=== PATIENT | female | born 1940 | race Caucasian/White ===

== ENCOUNTER 2018-10-12 22:14 | Observation (INO) ==
[2018-10-12] MEDS ORDERED: Sod Chloride 0.9% Inj 1,000 ML IV.SIG ONE (22:43)
--- NOTE | 2018-10-12 22:58 | XR ---
EXAM DATE: 10/12/2018 10:55 PM EST AGE/SEX: 78 years / Female INDICATIONS: Syncope. CLINICAL DATA: This is the patient's initial encounter. Patient reports that signs and symptoms have been present for 1 day and indicates a pain score of 0/10. MEDICAL/SURGICAL HISTORY: Hypertension. CABG. Pacemaker. COMPARISON: No prior exams available for comparison. FINDINGS: A single AP view of the chest demonstrates the lungs to be symmetrically aerated without evidence of mass, infiltrate or effusion. The cardiomediastinal contours are unremarkable. Osseous structures a re intact. Left subclavian pacer in good position. 4 median sternotomy wires. CONCLUSION: Left subclavian pacer. Clips and wires suggests CABG. Electronically signed by: Art Barr MD Board Certified Radiologist 10/12/2018 10:57 PM EST
--- NOTE | 2018-10-12 23:05 | CT ---
EXAM DATE: 10/12/2018 10:58 PM EST AGE/SEX: 78 years / Female INDICATIONS: Trauma; fall. Possible syncope. CLINICAL DATA: This is the patient's initial encounter. Patient reports that signs and symptoms have been present for 1 day and indicates a pain score of 6/10. MEDICAL/SURGICAL HISTORY: None. None. RADIATION DOSE: 56.35 CTDI (mGy) COMPARISON: No prior exams available for comparison. TECHNIQUE: CT of the head without contrast. Using automated exposure control and adjustment of the mA and/or kV according to patient size, radiation dose was kept as low as reasonably achievable to ob tain optimal diagnostic quality images. DICOM format image data is available electronically for revi ew and comparison. FINDINGS: Cerebrum: The ventricles are normal for age. No evidence of midline shift, mass lesion, hemorrhage or acute infarction. No extraaxial fluid collections are seen. Posterior Fossa: The cerebellum and brainstem are intact. The 4th ventricle is midline. The cerebe llopontine angle is unremarkable. Extracranial: The visualized portion of the orbits is intact. There are some calcifications right la teral globe. Skull: The calvaria is intact. No evidence of skull fracture. CONCLUSION: 1. No evidence of intracranial injury, hemorrhage, edema or mass effect. . Electronically signed by: Art Barr MD Board Certified Radiologist 10/12/2018 11:04 PM EST
[2018-10-12 23:29] LABS: Baso # (Auto) 0.1 th/mm3 (0.0-0.2); Baso % (Auto) 0.5 % (0.0-2.0); Eos # (Auto) 0.2 th/mm3 (0.0-0.4); Hematocrit 38.9 % (35.0-46.0); Hemoglobin 12.9 gm/dL (11.6-15.3); Lymph # (Auto) 1.3 th/mm3 (1.0-4.8); Lymph % (Auto) 11.2 % (9.0-44.0); Mean Corpuscular HGB Conc 33.3 % (32.0-36.0); Mean Corpuscular Hemoglobin 30.7 pg (27.0-34.0); Mean Corpuscular Volume 92.1 fL (80.0-100.0); Mean Platelet Volume 10.1 fL (7.0-11.0); Mono # (Auto) 0.9 th/mm3 (0.0-0.9); Mono % (Auto) 7.9 % (0.0-8.0); Neut # (Auto) 9.2 th/mm3 (1.8-7.7); Neut % (Auto) 78.4 % (16.0-70.0); Platelet Count 208 th/mm3 (150-450); Red Blood Count 4.22 mil/mm3 (4.00-5.30); Red Cell Distribution Width 14.4 % (11.6-17.2); White Blood Count 11.7 th/mm3 (4.0-11.0)
--- NOTE | 2018-10-12 23:31 | ED ---
HPI General Chief Complaint: Dizziness Stated Complaint: Poss Syncope Time Seen by Provider: 10/12/18 22:24 Source: EMS Mode of arrival: EMS History of Present Illness HPI narrative: 78 yo F bibems 2/2 slumping over during a bowel movement this evening. No fall. Pt recalls event. Pt denies cp/sob. No n/v/d. No dizziness. Pt reports feeling well today otherwise. Onset sudden. Timing resolved. Daughter called EMS. Related Data Home Medications Medication Instructions Recorded Confirmed Aspir-81 81 mg PO DAILY 10/12/18 10/12/18 alprazolam 0.25 mg PO BID 10/13/18 10/13/18 atorvastatin 20 mg PO DAILY 10/13/18 10/13/18 docusate sodium 100 mg PO DAILY PRN 10/13/18 10/13/18 midodrine 2.5 mg PO DAILY 10/13/18 10/13/18 montelukast 10 mg PO QPM 10/13/18 10/13/18 pregabalin [Lyrica] 75 mg PO BID 10/13/18 10/13/18 sertraline 50 mg PO DAILY 10/13/18 10/13/18 Allergies Allergy/AdvReac Type Severity Reaction Status Date / Time Penicillins Allergy Anaphylaxis Verified 10/12/18 22:30 Sulfa (Sulfonamide Allergy Anaphylaxis Verified 10/12/18 22:30 Antibiotics) Review of Systems ROS: all other systems reviewed are negative [facility] Medical History Medical History Atrial fibrillation (Acute) HTN (hypertension) (Acute) Pacemaker (Acute) Surgical History Surgical History History of hernia surgery (Acute) Social History Social History Substance History: No History of Abuse Second Hand Smoke Exposure: No Smoking Status: Never smoker How Often Do You Have a Drink Containing Alcohol: Never Recent Travel in [facility] [[email or web address]] within the Last 8 Weeks: No Recent Out of Country Travel within the Last 8 Weeks: No Exam Narrative Exam Narrative: GENERAL: 78 yo F, WNWD, AOx3 SKIN: Focused skin assessment warm/dry. HEAD: Atraumatic. Normocephalic. EYES: Pupils equal and round. No scleral icterus. No injection or drainage. ENT: No nasal bleeding or discharge. Mucous membranes pink and moist. NECK: Trachea midline. No JVD. CARDIOVASCULAR: Regular rate and rhythm. No murmur appreciated. RESPIRATORY: No accessory muscle use. Clear to auscultation. Breath sounds equal bilaterally. GASTROINTESTINAL: Abdomen soft, non-tender, nondistended. Hepatic and splenic margins not palpable. MUSCULOSKELETAL: No obvious deformities. No clubbing. No cyanosis. No edema. NEUROLOGICAL: Awake and alert. No obvious cranial nerve deficits. Motor grossly within normal limits. Normal speech. PSYCHIATRIC: Appropriate mood and affect; insight and judgment normal. Course Initial Documented Vital Signs Temperature 98.7 F 10/12/18 22:21 Pulse Rate 60 10/12/18 22:21 Respiratory Rate 18 10/12/18 22:21 Blood Pressure 115/57 L 10/12/18 22:21 Pulse Oximetry 94 L 10/12/18 22:21 Last Documented Vital Signs Temperature 98.7 F 10/12/18 22:21 Pulse Rate 60 10/12/18 22:21 Respiratory Rate 18 10/12/18 22:21 Blood Pressure 115/57 L 10/12/18 22:21 Pulse Oximetry 94 L 10/12/18 22:21 Medical Decision Making MDM Narrative Medical decision making narrative: Chest x-ray shows no acute cardiopulmonary disease Head CT shows no acute ICH EKG shows an electronic atrial paced maker with a rate of 60 T wave inversions are noted in V1 through V6. No prior available for comparison Discussion with daughter reveals pt had blood pressure of 80/50 and 90/60 en route to ED. WBC 11.7 Na 148 BUN 30 Cr 0.[address] Arellano Neurologist Dr Parham Near syncope with clinical dehydration Call to [facility] at 0100 d/w Dr Elam at 120AM Pt resting comfortably throughout ED stay. Medical Screen Exam Complete: Yes Emergency Medical Condition: Yes Lab Data Result diagrams: 10/12/18 23:11 10/12/18 23:11 Lab Results 10/12/18 10/12/18 Range/Units 23:11 23:11 WBC 11.7 H (4.0-11.0) th/mm3 RBC 4.22 (4.00-5.30) mil/mm3 Hgb 12.9 (11.6-15.3) gm/dL Hct 38.9 (35.0-46.0) % MCV 92.1 (80.0-100.0) fL MCH 30.7 (27.0-34.0) pg MCHC 33.3 (32.0-36.0) % RDW 14.4 (11.6-17.2) % Plt Count 208 (150-450) th/mm3 MPV 10.1 (7.0-11.0) fL Neut % (Auto) 78.4 H (16.0-70.0) % Lymph % (Auto) 11.2 (9.0-44.0) % Pender % (Auto) 7.9 (0.0-8.0) % Eos % (Auto) 2.0 (0.0-4.0) % Baso % (Auto) 0.5 (0.0-2.0) % Neut # (Auto) 9.2 H (1.8-7.7) th/mm3 Lymph # (Auto) 1.3 (1.0-4.8) th/mm3 Pender # (Auto) 0.9 (0.0-0.9) th/mm3 Eos # (Auto) 0.2 (0.0-0.4) th/mm3 Baso # (Auto) 0.1 (0.0-0.2) th/mm3 WBC Differential . Differential Comment Auto diff final Sodium 148 H (136-145) meq/L Potassium 3.9 (3.5-5.1) meq/L Chloride 118 H (98-107) meq/L Carbon Dioxide 21.2 (21.0-32.0) meq/L Anion Gap 9 (5-15) meq/L BUN 30 H (7-18) mg/dL Creatinine 0.98 (0.50-1.00) mg/dL Estimated GFR 55 L (>89) mL/min Random Glucose 80 (74-106) mg/dL Calcium 8.0 L (8.5-10.1) mg/dL Imaging Data Radiologist's impression: Chest X-Ray 10/12/18 22:43 CONCLUSION: Left subclavian pacer. Clips and wires suggests CABG. Head CT 10/12/18 22:43 CONCLUSION: 1. No evidence of intracranial injury, hemorrhage, edema or mass effect. . Discharge Plan Discharge Disposition Patient Disposition: ED Admit(ED Internal Use Only) Discharge Condition Condition: Stable Discharge Order Discharge Orders: ED Use Only Admit Order (Routine); Ordered 10/13/18 Ordered By: Humberto Schmitz Physicians Team ED Provider: Humberto Schmitz Primary Care Provider: Jass Wilcox Attending Provider: Lois lEam Status ED Status: Admitted Observation Patient
[2018-10-12 23:47] LABS: Carbon Dioxide 21.2 meq/L (21.0-32.0); Potassium 3.9 meq/L (3.5-5.1)
[2018-10-13] MEDS ORDERED: Acetaminophen 325 MG Tablet PO PRN (01:43)
[2018-10-13] MEDS ORDERED: Bisacodyl 10 MG Supp RECTAL PRN (01:43)
--- NOTE | 2018-10-13 03:11 | P.HP ---
History of Present Illness Service: [facility] Primary Care Physician: CRISTI Meléndez History of Present Illness: 78-year-old female with a past medical history significant for pacemaker for an irregular heartbeat, dementia, blindness and hyperlipidemia presents to the emergency department for the evaluation of a syncopal episode. The patient was discharged from rehab on 09/25/18 after a 2-week hospitalization for pneumonia. The patient has no memory of the events that occurred earlier in the evening. Per the patient's daughter, she was called by her stanley son who was taking care of the patient. The patient reported to the son that she was feeling lightheaded and went to the bathroom. While in the bathroom she lost consciousness and the son helped her to the floor. She lost bowel continence at that time. The patient denies any chest pain or shortness of breath. No palpitations. No abdominal pain. No nausea/vomiting/diarrhea. No focal neurologic deficits. Review of Systems All other systems reviewed negative except as stated in HPI [facility] - History History Provided By: Patient - Medical History Medical History: Medical History (Last Updated 10/13/18 @ 03:04 by Lois Elam MD) Anxiety Atrial fibrillation HTN (hypertension) Hyperlipidemia Pacemaker Syncopal episodes - Surgical History Surgical History: Surgical History (Last Updated 10/13/18 @ 03:04 by Lois Elam MD) History of cataract surgery History of hand surgery History of hernia surgery History of shoulder surgery Hx of appendectomy Hx of cataract surgery - Family History Family History: Family History (Last Updated 10/13/18 @ 03:05 by Lois Elam MD) Other CAD (coronary artery disease) CVA (cerebral vascular accident) - Social History I have reviewed the patient's Social History: Yes - Tobacco History Second Hand Smoke Exposure: No Tobacco Use In Past 30 Days: No Smoking Status: Never smoker - Alcohol History How Often Do You Have a Drink Containing Alcohol: Never - Substance Use History Substance History: No History of Abuse - Travel History Recent Travel in the [place] Within the Last 8 Weeks: No Recent Travel Out of the Country Within the Last 8 Weeks: No - Immunization History Tetanus Immunization: <5 Years Medications and Allergies Active Medications: Active Medications Acetaminophen (Tylenol) 650 mg PO Q4H PRN PRN Reason: Temp > 100.4 Al Hydroxide/Mg Hydroxide (Milk Of Magnesia Liq) 30 ml PO Q12H PRN PRN Reason: Mild Constipation Alprazolam (Xanax) 0.25 mg PO BID [facility] Aspirin (Ecotrin) 81 mg PO DAILY [facility] Atorvastatin Calcium (Lipitor) 20 mg PO DAILY [facility] Bisacodyl (Dulcolax Supp) 10 mg RECTAL DAILY PRN PRN Reason: SEVERE CONSITIPATION Heparin Sodium (Porcine) (Heparin Inj) 5,000 units SQ Q12HR SERGEI Lactulose (Lactulose Liq) 30 ml PO DAILY PRN PRN Reason: SEVERE CONSITIPATION Midodrine (Proamatine) 2.5 mg PO DAILY [facility] Ondansetron HCl (Zofran Inj) 4 mg IV.PUSH Q6H PRN PRN Reason: NAUSEA OR VOMITING Pregabalin (Lyrica) 75 mg PO BID [facility] Senna/Docusate Sodium (Adriana-Colace) 1 tab PO BID [facility] Sennosides (Senokot) 17.2 mg PO Q12H PRN PRN Reason: Moderate Constipation Sertraline HCl (Zoloft) 50 mg PO DAILY [facility] Sodium Chloride (Ns Flush) 2 ml IV.FLUSH PRN PRN PRN Reason: FLUSH AFTER USING IV ACCESS Sodium Chloride (Ns Flush) 2 ml IV.FLUSH BID [facility] Sodium Chloride (Ns Flush) 2 ml IV.FLUSH PRN PRN PRN Reason: FLUSH AFTER USING IV ACCESS Allergies Allergy/AdvReac Type Severity Reaction Status Date / Time Penicillins Allergy Anaphylaxis Verified 10/12/18 22:30 Sulfa (Sulfonamide Allergy Anaphylaxis Verified 10/12/18 22:30 Antibiotics) Home Medications Medication Instructions Recorded Confirmed Type Aspir-81 81 mg PO DAILY 10/12/18 10/12/18 History alprazolam 0.25 mg PO BID 10/13/18 10/13/18 History atorvastatin 20 mg PO DAILY 10/13/18 10/13/18 History docusate sodium 100 mg PO DAILY PRN 10/13/18 10/13/18 History midodrine 2.5 mg PO DAILY 10/13/18 10/13/18 History montelukast 10 mg PO QPM 10/13/18 10/13/18 History pregabalin [Lyrica] 75 mg PO BID 10/13/18 10/13/18 History sertraline 50 mg PO DAILY 10/13/18 10/13/18 History Exam Vital signs: Vital Signs 10/12/18 22:21 10/13/18 01:40 Temperature 98.7 F Pulse Rate 60 66 Respiratory Rate 18 Blood Pressure 115/57 L Pulse Oximetry 94 L 96 Intake & Output 10/12/18 10/12/18 10/13/18 06:59 18:59 06:59 Intake Total 1000 / 1000 Balance 1000 / 1000 Weight 68.039 kg Intake: IV 1000 / 1000 NS Inj 1,000 ML @ Wide Open IV. 1000 / 1000 SIG BOLUS ONE Rx#:[id number] Narrative: Gen.: No acute distress Head: Normocephalic. Atraumatic. EENT: Pupils equal round and reactive to light. Nose without drainage. Airway intact. Throat without injection. Cardiovascular: Regular rate and rhythm. No murmurs, rubs or gallops. Respiratory: Lungs clear to auscultation bilaterally. No wheezes or rhonchi. Abdomen: Soft, nontender, nondistended. No peritoneal signs. Musculoskeletal: No gross deformities. No edema. Skin: No obvious rashes or erythema. Neuro: Sensory and motor grossly intact. Cranial nerves II through XII grossly intact. Results - Labs CBC & Chem 7: 10/12/18 23:11 10/12/18 23:11 Labs: Laboratory Results - last 24 hr 10/12/18 10/12/18 23:11 23:11 WBC 11.7 H RBC 4.22 Hgb 12.9 Hct 38.9 MCV 92.1 MCH 30.7 MCHC 33.3 RDW 14.4 Plt Count 208 MPV 10.1 Neut % (Auto) 78.4 H Lymph % (Auto) 11.2 Clinch % (Auto) 7.9 Eos % (Auto) 2.0 Baso % (Auto) 0.5 Neut # (Auto) 9.2 H Lymph # (Auto) 1.3 Clinch # (Auto) 0.9 Eos # (Auto) 0.2 Baso # (Auto) 0.1 WBC Differential . Differential Comment Auto diff final Sodium 148 H Potassium 3.9 Chloride 118 H Carbon Dioxide 21.2 Anion Gap 9 BUN 30 H Creatinine 0.98 Estimated GFR 55 L Random Glucose 80 Calcium 8.0 L - Imaging Impressions Chest X-Ray 10/12/18 22:43 CONCLUSION: Left subclavian pacer. Clips and wires suggests CABG. Head CT 10/12/18 22:43 CONCLUSION: 1. No evidence of intracranial injury, hemorrhage, edema or mass effect. . Caprini VTE Risk Assessment Caprini VTE Risk Assessment: Moderate/High Risk (score >= 2) Caprini Risk Assessment Model: Point Value = 1 Point Value = 2 Point Value = 3 Point Value = 5 Age 41-60 Minor surgery BMI > 25 kg/m2 Swollen legs Varicose veins or History of unexplained or recurrent spontaneous Oral contraceptives or hormone replacement Sepsis (< 1 month) Serious lung disease, including pneumonia (< 1 month) Abnormal pulmonary function Acute myocardial infarction Congestive heart failure (< 1 month) History of inflammatory bowel disease Medical patient at bed rest Age 61-74 Arthroscopic surgery Major open surgery (> 45 min) Laparoscopic surgery (> 45 min) Malignancy Confined to bed (> 72 hours) Immobilizing plaster cast Central venous access Age >= 75 History of VTE Family history of VTE Factor V Leiden Prothrombin [id number] Lupus anticoagulant Anticardiolipin antibodies Elevated serum homocysteine Heparin-induced thrombocytopenia Other congenital or acquired thrombophilia Stroke (< 1 month) Elective arthroplasty Hip, pelvis, or leg fracture Acute spinal cord injury (< 1 month) Prophylaxis Regimen: Total Risk Factor Score Risk Level Prophylaxis Regimen 0-1 Low Early ambulation 2 Moderate Order ONE of the following: *Sequential Compression Device (SCD) *Heparin 5000 units SQ BID 3-4 Higher Order ONE of the following medications: *Heparin 5000 units SQ TID *Enoxaparin/Lovenox 40 mg SQ daily (WT < 150 kg, CrCl > 30 mL/min) *Enoxaparin/Lovenox 30 mg SQ daily (WT < 150 kg, CrCl > 10-29 mL/min) *Enoxaparin/Lovenox 30 mg SQ BID (WT < 150 kg, CrCl > 30 mL/min) AND/OR *Sequential Compression Device (SCD) 5 or more Highest Order ONE of the following medications: *Heparin 5000 units SQ TID (Preferred with Epidurals) *Enoxaparin/Lovenox 40 mg SQ daily (WT < 150 kg, CrCl > 30 mL/min) *Enoxaparin/Lovenox 30 mg SQ daily (WT < 150 kg, CrCl > 10-29 mL/min) *Enoxaparin/Lovenox 30 mg SQ BID (WT < 150 kg, CrCl > 30 mL/min) AND *Sequential Compression Device (SCD) Assessment and Plan - Plan Assessment/plan: 1. Syncope Patient with recent pacemaker placement for "irregular heartbeat" Not on systemic anticoagulation Echo and carotid ultrasound pending Patient's grinding operator, Dr. Arellano consulted, appreciate assistance Telemetry 2. Hyperlipidemia Continue home statin 3. Dementia/depression/anxiety Continue home Zoloft and Xanax FEN Regular diet Electrolytes: Monitor and replete as needed NS at 70 cc/hour
[2018-10-13] MEDS: Sod Chloride 0.9% Inj 1,000 ML IV.CONT SCH ×3 (03:40→17:40)
[2018-10-13] MEDS: Heparin - SQ 10,000 UNITS/ML Vial SQ SCH ×3 (07:37→20:08)
[2018-10-13] MEDS: Pregabalin 75 MG Capsule PO SCH ×3 (07:37→20:08)
[2018-10-13] MEDS: Senna/Docusate Sodium 8.6/50 MG Tablet PO SCH ×3 (07:37→20:09)
[2018-10-13] MEDS: Sertraline 50 MG Tablet PO SCH ×2 (07:37→10:29)
[2018-10-13] MEDS: ALPRAZolam 0.25 MG Tablet PO SCH ×3 (07:37→20:08)
[2018-10-13] MEDS ORDERED: Non-Formulary Drug (Aspir-81 81 MG) PO SCH (09:00)
[2018-10-13] MEDS ORDERED: MIDODRINE 2.5 MG PO SCH (09:00)
--- NOTE | 2018-10-13 10:29 | P.PN ---
Subjective Interval history: Follow-up visit for syncopal episode. Patient seen and examined sitting up on the side of the bed with PT present, later seen ambulating in the navarro with PT and walker. Patient denies any dizziness, lightheadedness, chest pain, cough, shortness of breath, nausea or vomiting. States one episode of diarrhea yesterday with syncopal episode, and no further diarrhea reported. Able to tolerate breakfast without any issues. Patient states that she is just feeling weak. Physical Exam Vital signs: Vital Signs 10/12/18 22:21 10/13/18 01:40 10/13/18 03:10 Temperature 98.7 F 97.1 F L Pulse Rate 60 66 60 Respiratory Rate 18 18 Blood Pressure 115/57 L 118/73 Pulse Oximetry 94 L 96 94 L 10/13/18 03:47 10/13/18 04:00 10/13/18 06:55 Temperature Pulse Rate 70 60 Respiratory Rate 15 Blood Pressure Pulse Oximetry 94 L 10/13/18 08:00 Temperature 96.9 F L Pulse Rate 60 Respiratory Rate 14 Blood Pressure 115/66 Pulse Oximetry 95 Intake & Output 10/12/18 10/13/18 10/13/18 18:59 06:59 18:59 Intake Total 1120 / 1120 Balance 1120 / 1120 Weight 68 kg Intake: IV 1000 / 1000 NS Inj 1,000 ML @ Wide Open IV. 1000 / 1000 SIG BOLUS ONE Rx#:[id number] Oral 120 / 120 Other: # Incontinent Voids 1 Date of Last Bowel Movement 10/13/18 10/13/18 # Incontinent Bowel Movements 1 Narrative: GENERAL: Well-developed, well-nourished female sitting up in bed in no acute distress. SKIN: Warm and dry. HEAD: Atraumatic. Normocephalic. EYES: Pupils equal and round. No scleral icterus. No injection or drainage. ENT: No nasal bleeding or discharge. Mucous membranes pink and moist. NECK: Trachea midline. No JVD. CARDIOVASCULAR: Regular rate and rhythm. No murmurs noted. RESPIRATORY: No accessory muscle use. Clear to auscultation. Breath sounds equal bilaterally. GASTROINTESTINAL: Abdomen soft, non-tender, nondistended. + Bowel sounds MUSCULOSKELETAL: Extremities without clubbing, cyanosis, or edema. No obvious deformities. NEUROLOGICAL: Awake, alert, oriented x3. No obvious cranial nerve deficits. Motor grossly within normal limits. 4/5 muscle strength in the arms and legs. Normal speech. PSYCHIATRIC: Appropriate mood and affect; insight and judgment normal. Results - Labs CBC & Chem 7: 10/12/18 23:11 10/12/18 23:11 Laboratory Results - last 24 hr 10/12/18 10/12/18 23:11 23:11 WBC 11.7 H RBC 4.22 Hgb 12.9 Hct 38.9 MCV 92.1 MCH 30.7 MCHC 33.3 RDW 14.4 Plt Count 208 MPV 10.1 Neut % (Auto) 78.4 H Lymph % (Auto) 11.2 Randolph % (Auto) 7.9 Eos % (Auto) 2.0 Baso % (Auto) 0.5 Neut # (Auto) 9.2 H Lymph # (Auto) 1.3 Randolph # (Auto) 0.9 Eos # (Auto) 0.2 Baso # (Auto) 0.1 WBC Differential . Differential Comment Auto diff final Sodium 148 H Potassium 3.9 Chloride 118 H Carbon Dioxide 21.2 Anion Gap 9 BUN 30 H Creatinine 0.98 Estimated GFR 55 L Random Glucose 80 Calcium 8.0 L - Imaging Impressions Chest X-Ray 10/12/18 22:43 CONCLUSION: Left subclavian pacer. Clips and wires suggests CABG. Head CT 10/12/18 22:43 CONCLUSION: 1. No evidence of intracranial injury, hemorrhage, edema or mass effect. . Assessment and Plan - Plan Syncopal episode -Patient with history of irregular heartbeat not on anticoagulation -Followed by Dr. Adan small, pacemaker in place. -Pacemaker interrogated with no events reported. -Consult placed to cardiology, appreciate assistance per -Carotid ultrasound with mild plaque at carotid bulb regions being greater on right, significant stenosis is not seen. -EKG on admission showed atrial paced rhythm with moderate T wave abnormality. -Head CT negative -Continue monitoring on telemetry, 2D echo pending -Patient is on low-dose Midrin at home, syncopal episode possibly due to dehydration versus vagal episode. Hyperlipidemia Dementia Anxiety -Continue home dose statin -Continue Zoloft and Xanax Patient seen and evaluated by PT who recommended home with home health PT, will also consult OT. DVT prophylaxissubcu heparin Discussed Condition With: Discussed with patient, RN, Gladys, SPORTS INTERN. Discharge Planning: Pending echo likely discharge home with home health PT.
--- NOTE | 2018-10-13 10:58 | US ---
EXAM DATE: 10/13/2018 10:55 AM EST AGE/SEX: 78 years / Female INDICATIONS: Dizziness. Possible syncope. CLINICAL DATA: This is the patient's initial encounter. Patient reports that signs and symptoms have been present for 1 day and indicates a pain score of 0/10. MEDICAL/SURGICAL HISTORY: Hypertension. Atrial fibrillation. Pacemaker. CABG. Appendectomy. Hernia surgery. Cataract surgery. COMPARISON: . VELOCITY PARAMETERS: ICA/CCA Ratio: Right 1.4 , Left 0.8 ICA: Right 121.9 cm/sec, Left 93.5 cm/sec CCA: Right 85.4 cm/sec, Left 114.5 cm/sec ECA: Right 127.8 cm/sec, Left 109.7 cm/sec Vertebral: Right 60.7 cm/sec antegrade, Left 82.2 cm/sec antegrade FINDINGS: Right Carotid: Mild arteriosclerotic plaque is visualized.The waveforms are within normal limits. Left Carotid: Mild arteriosclerotic plaque is visualized. The waveforms are within normal limits. Other: Thyroid nodules are seen. CONCLUSION: Mild plaque at the carotid bulb regions being greater on the right. Significant stenosis is not seen. Electronically signed by: Rl Davenport MD Board Certified Radiologist 10/13/2018 10:57 AM EST
[2018-10-13 11:45] LABS: Bilirubin,Urine Negative (Negative); Clarity,Urine Hazy (Clear); Color,Urine Yellow (Yellw/Straw); Glucose,Urine (UA) Negative (Negative); Leukocyte Esterase,Urine Negative (Negative); Mucus,Urine Few /lpf (Occasional); Nitrite,Urine Negative (Negative); Specific Gravity,Urine 1.021 (1.002-1.035); Squamous Epithelial Cell,Urine 2 /hpf (0-5)
--- NOTE | 2018-10-13 15:04 | P.CONCA ---
History of Present Illness Service: Cardiology Consult date: 10/13/18 Reason for Consult: Syncope Primary Care Provider: CRISTI Meléndez History of Present Illness: Ms. Bruce is a pleasant 78-year-old female known to Dr. Arellano. She has a past medical history significant for symptomatic bradycardia S/P pacemaker implantation, CAD S/P CABG, dementia, blindness and hyperlipidemia. The patient was discharged from rehab on 09/25/18 after a 2-week hospitalization for pneumonia. She presented to the ED yesterday after syncopal episode. Per chart review patient was attempting to go to the restroom and passed out. Grandson called EMS and she was brought to the ED for further evaluation. BP has been stable. CT head was negative. CXR - no acute process. Carotid ultrasound showed mild plaque at the carotid bulb regions being greater on the right. Significant stenosis is not seen. EKG shows A-paced rhythm, T wave inversion, rate 60. Device interrogation was normal, no episodes noted. She denies chest pain, shortness of breath, palpitations. RN reports diarrhea through the night. She is currently sitting on side of bed without distress. Denies pain or needs. Review of Systems 12 point review of systems is negative except what is mentioned above in HPI PMFSH - History History Provided By: Patient - Medical History Medical History: Medical History (Last Reviewed 10/13/18 @ 08:21 by Farzana Tipton) Anxiety Atrial fibrillation HTN (hypertension) Hyperlipidemia Pacemaker Syncopal episodes - Surgical History Surgical History: Surgical History (Last Reviewed 10/13/18 @ 08:21 by Farzana Tipton) History of cataract surgery History of hand surgery History of hernia surgery History of shoulder surgery Hx of appendectomy Hx of cataract surgery - Family History Family History: Family History (Last Updated 10/13/18 @ 03:05 by Lois Elam MD) Other CAD (coronary artery disease) CVA (cerebral vascular accident) - Tobacco History Second Hand Smoke Exposure: No Tobacco Use In Past 30 Days: No Smoking Status: Never smoker - Alcohol History How Often Do You Have a Drink Containing Alcohol: Never - Substance Use History Substance History: No History of Abuse - Travel History Recent Travel in the [place] Within the Last 8 Weeks: No Recent Travel Out of the Country Within the Last 8 Weeks: No - Immunization History Tetanus Immunization: <5 Years Hx Influenza Vaccine This Season: Yes Medications and Allergies Allergies Allergy/AdvReac Type Severity Reaction Status Date / Time codeine Allergy Difficulty Verified 10/13/18 05:17 Breathing Penicillins Allergy Anaphylaxis Verified 10/12/18 22:30 Sulfa (Sulfonamide Allergy Anaphylaxis Verified 10/12/18 22:30 Antibiotics) Home Medications Medication Instructions Recorded Confirmed Type Aspir-81 81 mg PO DAILY 10/12/18 10/12/18 History alprazolam 0.25 mg PO BID 10/13/18 10/13/18 History atorvastatin 20 mg PO DAILY 10/13/18 10/13/18 History docusate sodium 100 mg PO DAILY PRN 10/13/18 10/13/18 History midodrine 2.5 mg PO DAILY 10/13/18 10/13/18 History montelukast 10 mg PO QPM 10/13/18 10/13/18 History pregabalin [Lyrica] 75 mg PO BID 10/13/18 10/13/18 History sertraline 50 mg PO DAILY 10/13/18 10/13/18 History Active Medications: Active Medications Acetaminophen (Tylenol) 650 mg PO Q4H PRN PRN Reason: Temp > 100.4 Al Hydroxide/Mg Hydroxide (Milk Of Magnesia Liq) 30 ml PO Q12H PRN PRN Reason: Mild Constipation Alprazolam (Xanax) 0.25 mg PO BID [facility] Last Admin: 10/13/18 10:29 Dose: Not Given Aspirin (Ecotrin) 81 mg PO DAILY [facility] Last Admin: 10/13/18 10:26 Dose: Not Given Atorvastatin Calcium (Lipitor) 20 mg PO DAILY [facility] Last Admin: 10/13/18 10:26 Dose: Not Given Bisacodyl (Dulcolax Supp) 10 mg RECTAL DAILY PRN PRN Reason: SEVERE CONSITIPATION Heparin Sodium (Porcine) (Heparin Inj) 5,000 units SQ Q12HR [facility] Last Admin: 10/13/18 10:26 Dose: Not Given Sodium Chloride (Ns Inj) 1,000 mls @ 70 mls/hr IV.CONT .[id number] [facility] Last Infusion: 10/13/18 11:30 Dose: 70 mls/hr Lactulose (Lactulose Liq) 30 ml PO DAILY PRN PRN Reason: SEVERE CONSITIPATION Midodrine (Proamatine) 2.5 mg PO DAILY [facility] Last Admin: 10/13/18 10:29 Dose: Not Given Ondansetron HCl (Zofran Inj) 4 mg IV.PUSH Q6H PRN PRN Reason: NAUSEA OR VOMITING Pregabalin (Lyrica) 75 mg PO BID [facility] Last Admin: 10/13/18 10:27 Dose: Not Given Senna/Docusate Sodium (Adriana-Colace) 1 tab PO BID [facility] Last Admin: 10/13/18 10:27 Dose: Not Given Sennosides (Senokot) 17.2 mg PO Q12H PRN PRN Reason: Moderate Constipation Sertraline HCl (Zoloft) 50 mg PO DAILY [facility] Last Admin: 10/13/18 10:29 Dose: Not Given Sodium Chloride (Ns Flush) 2 ml IV.FLUSH PRN PRN PRN Reason: FLUSH AFTER USING IV ACCESS Sodium Chloride (Ns Flush) 2 ml IV.FLUSH BID [facility] Last Admin: 10/13/18 10:27 Dose: Not Given Sodium Chloride (Ns Flush) 2 ml IV.FLUSH PRN PRN PRN Reason: FLUSH AFTER USING IV ACCESS Exam Vital signs: Vital Signs 10/12/18 22:21 10/13/18 01:40 10/13/18 03:10 Temperature 98.7 F 97.1 F L Pulse Rate 60 66 60 Respiratory Rate 18 18 Blood Pressure 115/57 L 118/73 Pulse Oximetry 94 L 96 94 L 10/13/18 03:47 10/13/18 04:00 10/13/18 06:55 Temperature Pulse Rate 70 60 Respiratory Rate 15 Blood Pressure Pulse Oximetry 94 L 10/13/18 08:00 10/13/18 12:00 10/13/18 14:19 Temperature 96.9 F L 96.8 F L Pulse Rate 62 60 62 Respiratory Rate 14 16 Blood Pressure 115/66 122/57 L Pulse Oximetry 95 93 L Intake & Output 10/12/18 10/13/18 10/13/18 18:59 06:59 18:59 Intake Total 1120 / 1120 544 / 544 Balance 1120 / 1120 544 / 544 Weight 68 kg Intake: IV 1000 / 1000 544 / 544 NS Inj 1,000 ML @ 70 mls/hr IV. 544 / 544 CONT .[id number] [facility] Rx#:[id number] NS Inj 1,000 ML @ Wide Open IV. 1000 / 1000 SIG BOLUS ONE Rx#:[id number] Oral 120 / 120 Other: # Incontinent Voids 1 Date of Last Bowel Movement 10/13/18 10/13/18 # Incontinent Bowel Movements 1 Narrative: GENERAL: Awake, alert. No distress. SKIN: Focused skin assessment warm/dry. L upper/anterior chest pacemaker site intact. HEAD: Atraumatic. Normocephalic. EYES: Pupils equal and round. No scleral icterus. No injection or drainage. ENT: No nasal bleeding or discharge. Mucous membranes pink and moist. NECK: Trachea midline. No JVD. CARDIOVASCULAR: Regular rate and rhythm. No murmur appreciated. RESPIRATORY: No accessory muscle use. Clear to auscultation. Breath sounds equal bilaterally. GASTROINTESTINAL: Abdomen soft, non-tender, nondistended. Hepatic and splenic margins not palpable. MUSCULOSKELETAL: No obvious deformities. No clubbing. No cyanosis. No edema. NEUROLOGICAL: Awake and alert. No obvious cranial nerve deficits. Motor grossly within normal limits. Normal speech. PSYCHIATRIC: Appropriate mood and affect; insight and judgment normal. Results 10/12/18 23:11 10/12/18 23:11 CBC 10/12/18 Range/Units 23:11 WBC 11.7 H (4.0-11.0) th/mm3 RBC 4.22 (4.00-5.30) mil/mm3 Hgb 12.9 (11.6-15.3) gm/dL Hct 38.9 (35.0-46.0) % Plt Count 208 (150-450) th/mm3 Neut # (Auto) 9.2 H (1.8-7.7) th/mm3 Lymph # (Auto) 1.3 (1.0-4.8) th/mm3 [place] # (Auto) 0.9 (0.0-0.9) th/mm3 Eos # (Auto) 0.2 (0.0-0.4) th/mm3 Baso # (Auto) 0.1 (0.0-0.2) th/mm3 Comprehensive Metabolic Panel 10/12/18 Range/Units 23:11 Sodium 148 H (136-145) meq/L Potassium 3.9 (3.5-5.1) meq/L Chloride 118 H (98-107) meq/L Carbon Dioxide 21.2 (21.0-32.0) meq/L BUN 30 H (7-18) mg/dL Creatinine 0.98 (0.50-1.00) mg/dL Calcium 8.0 L (8.5-10.1) mg/dL Intake and Output 10/12/18 10/13/18 10/13/18 22:59 06:59 14:59 Intake Total 1120 / 1120 544 / 544 Balance 1120 / 1120 544 / 544 Intake: IV 1000 / 1000 544 / 544 NS Inj 1,000 ML @ 70 mls/hr IV. 544 / 544 CONT .[id number] [facility] Rx#:[id number] NS Inj 1,000 ML @ Wide Open IV. 1000 / 1000 SIG BOLUS ONE Rx#:[id number] Oral 120 / 120 Other: # Incontinent Voids 1 Date of Last Bowel Movement 10/13/18 10/13/18 10/13/18 # Incontinent Bowel Movements 1 Weight 68.039 kg 68 kg - Imaging and Cardiology Imaging: Impressions Chest X-Ray 10/12/18 22:43 CONCLUSION: Left subclavian pacer. Clips and wires suggests CABG. Head CT 10/12/18 22:43 CONCLUSION: 1. No evidence of intracranial injury, hemorrhage, edema or mass effect. . Carotid Doppler Study 10/13/18 00:00 CONCLUSION: Mild plaque at the carotid bulb regions being greater on the right. Significant stenosis is not seen. Assessment and Plan - Assessment (1) Syncope Code(s): R55 - Syncope and collapse Status: Acute (2) Paroxysmal atrial fibrillation Code(s): I48.0 - Paroxysmal atrial fibrillation Status: Acute (3) CAD (coronary artery disease) Code(s): I25.10 - Atherosclerotic heart disease of [place] coronary artery without angina pectoris Status: Acute (4) Hyperlipidemia Code(s): E78.5 - Hyperlipidemia, unspecified Status: Acute - Plan No further episodes. BP stable. Device interrogation did not reveal any arrhythmias. Carotid ultrasound showed mild plaque at the carotid bulb regions being greater on the right. No significant stenosis was seen. Echocardiogram is pending. Continue aspirin, statin. Likely vasovagal syncope. Dr. Arellano to cover tomorrow. Discussed Condition With: Dr. [place] - Attending Attestation Pt. seen and examined. Syncope sec. to hypotension and dehydration. Will monitor on tele.
--- NOTE | 2018-10-13 15:49 | P.DCO ---
- Physical Therapy Order: Evaluate and treat, Improve ambulation, Strength and gait training - Occupational Therapy Order: Evaluate and treat, Improve ADL, Gross motor coordination, Fine motor coordination - Case Management Consult Case Management Consult-Home Health: Yes - Certification I have seen patient Tasha Bruce on 10/13/18. My clinical findings support the need for the requested home health care services because: Limited mobility due to disease progression, High risk of falls I certify that my clinical findings support that this patient is homebound because: Unsteady gait/balance
--- NOTE | 2018-10-14 01:40 | ECG ---
Date Performed: 10/12/2018 Time Performed: 22:27:19 PTAGE: 78 years EKG: ELECTRONIC ATRIAL PACEMAKER MARKED LEFT AXIS DEVIATION MODERATE T-WAVE ABNORMALITY, CONSIDE R ANTERIOR ISCHEMIA ABNORMAL ECG NO PREVIOUS TRACING DOCTOR: Jaquan Schmitz Interpretating Date/Time 10/14/2018 01:40:42
[2018-10-14 05:24] LABS: Baso % (Auto) 0.8 % (0.0-2.0); Eos # (Auto) 0.2 th/mm3 (0.0-0.4); Eos % (Auto) 4.3 % (0.0-4.0); Hematocrit 35.4 % (35.0-46.0); Lymph # (Auto) 1.4 th/mm3 (1.0-4.8); Lymph % (Auto) 31.3 % (9.0-44.0); Mean Corpuscular Hemoglobin 30.9 pg (27.0-34.0); Mean Corpuscular Volume 91.1 fL (80.0-100.0); Mean Platelet Volume 10.2 fL (7.0-11.0); Mono # (Auto) 0.4 th/mm3 (0.0-0.9); Mono % (Auto) 9.9 % (0.0-8.0); Neut # (Auto) 2.4 th/mm3 (1.8-7.7); Neut % (Auto) 53.7 % (16.0-70.0); Platelet Count 185 th/mm3 (150-450); Red Blood Count 3.88 mil/mm3 (4.00-5.30); Red Cell Distribution Width 14.4 % (11.6-17.2); White Blood Count 4.4 th/mm3 (4.0-11.0)
[2018-10-14 05:45] LABS: Calcium 8.5 mg/dL (8.5-10.1); Carbon Dioxide 21.5 meq/L (21.0-32.0); Potassium 3.7 meq/L (3.5-5.1)
[2018-10-14] MEDS: Sod Chloride 0.9% Inj 1,000 ML IV.CONT SCH ×3 (05:51→21:49)
[2018-10-14] MEDS: Heparin - SQ 10,000 UNITS/ML Vial SQ SCH ×2 (08:24→20:46)
[2018-10-14] MEDS: ALPRAZolam 0.25 MG Tablet PO SCH ×2 (08:25→20:46)
[2018-10-14] MEDS: Senna/Docusate Sodium 8.6/50 MG Tablet PO SCH ×2 (08:25→20:46)
[2018-10-14] MEDS: Pregabalin 75 MG Capsule PO SCH ×2 (08:25→20:46)
[2018-10-14] MEDS: Sertraline 50 MG Tablet PO SCH (08:25)
--- NOTE | 2018-10-14 08:58 | P.PN ---
Subjective Interval history: Follow-up visit for syncopal episode. Patient is seen and examined sitting up in bed in no acute distress. Denies any fevers, chills, nausea, vomiting, diarrhea, dizziness, lightheadedness or chest pain. Reports she had one episode of diarrhea since she has arrived followed by regular bowel movement. No further complaints or recurrent syncopal episodes. Physical Exam Vital signs: Vital Signs 10/13/18 12:00 10/13/18 14:19 10/13/18 15:30 Temperature 96.8 F L 99.2 F Pulse Rate 60 62 66 Respiratory Rate 16 17 Blood Pressure 122/57 L 120/60 Pulse Oximetry 93 L 94 L 10/13/18 17:05 10/13/18 20:00 10/13/18 20:27 Temperature 97.5 F L Pulse Rate 60 64 Respiratory Rate 18 Blood Pressure 139/65 Pulse Oximetry 95 96 10/13/18 21:50 10/14/18 00:00 10/14/18 00:17 Temperature 98 F Pulse Rate 60 62 Respiratory Rate 17 Blood Pressure 129/61 Pulse Oximetry 96 94 L 10/14/18 03:34 10/14/18 04:00 10/14/18 08:00 Temperature 97.3 F L Pulse Rate 60 61 66 Respiratory Rate 17 Blood Pressure 145/65 H Pulse Oximetry 95 Intake & Output 10/13/18 10/14/18 10/14/18 18:59 06:59 18:59 Intake Total 1000 / 1000 1240 / 1240 1000 / 1000 Balance 1000 / 1000 1240 / 1240 1000 / 1000 Weight 67.6 kg Intake: IV 1000 / 1000 1000 / 1000 1000 / 1000 NS Inj 1,000 ML @ 70 mls/hr IV. 1000 / 1000 1000 / 1000 1000 / 1000 CONT .[id number] [facility] Rx#:[id number] Oral 240 / 240 Other: # Voids 4 4 Date of Last Bowel Movement 10/13/18 10/13/18 # Bowel Movements 3 Narrative: GENERAL: Well-developed, well-nourished female sitting up in bed in no acute distress. SKIN: Warm and dry. HEAD: Atraumatic. Normocephalic. EYES: Pupils equal and round. No scleral icterus. No injection or drainage. ENT: No nasal bleeding or discharge. Mucous membranes pink and moist. NECK: Trachea midline. CARDIOVASCULAR: Regular rate and rhythm. No murmurs noted. RESPIRATORY: Clear to auscultation. Breath sounds equal bilaterally. GASTROINTESTINAL: Abdomen soft, non-tender, nondistended. + Bowel sounds MUSCULOSKELETAL: Extremities without clubbing, cyanosis, or edema. No obvious deformities. NEUROLOGICAL: Awake, alert, oriented x3. No obvious cranial nerve deficits. Motor grossly within normal limits. Normal speech. PSYCHIATRIC: Appropriate mood and affect; insight and judgment normal. Results - Labs CBC & Chem 7: 10/14/18 04:27 10/14/18 04:27 Laboratory Results - last 24 hr 10/13/18 10/14/18 10/14/18 11:26 04:27 04:27 WBC 4.4 RBC 3.88 L Hgb 12.0 Hct 35.4 MCV 91.1 MCH 30.9 MCHC 34.0 RDW 14.4 Plt Count 185 MPV 10.2 Neut % (Auto) 53.7 Lymph % (Auto) 31.3 [place] % (Auto) 9.9 H Eos % (Auto) 4.3 H Baso % (Auto) 0.8 Neut # (Auto) 2.4 Lymph # (Auto) 1.4 [place] # (Auto) 0.4 Eos # (Auto) 0.2 Baso # (Auto) 0.0 WBC Differential . Differential Comment Auto diff final Sodium 148 H Potassium 3.7 Chloride 116 H Carbon Dioxide 21.5 Anion Gap 11 BUN 18 Creatinine 0.69 Estimated GFR 82 L Random Glucose 97 Calcium 8.5 Urine Color Yellow Urine Clarity Hazy H Urine pH 5.0 Ur Specific [place] 1.021 Urine Protein Negative Urine Glucose (UA) Negative Urine Ketones Negative Urine Occult Blood Negative Urine Nitrate Negative Urine Bilirubin Negative Urine Urobilinogen Less than 2 Ur Leukocyte Esterase Negative Urine RBC 1 Urine WBC 2 Ur Squamous Epith Cells 2 Urine Mucus Few H Micro UA Comment Culture not ind Ur Microscopic Review Not Reportable Urine Culture Comments Culture not ind - Imaging Impressions Carotid Doppler Study 10/13/18 00:00 CONCLUSION: Mild plaque at the carotid bulb regions being greater on the right. Significant stenosis is not seen. Assessment and Plan - Plan Syncopal episode -Patient with history of irregular heartbeat not on anticoagulation -Followed by Dr. Arellano cardiology, pacemaker in place. -Pacemaker interrogated with no events reported. -Consult placed to cardiology, appreciate assistance. -Carotid ultrasound with mild plaque at carotid bulb regions being greater on right, significant stenosis is not seen. -EKG on admission showed atrial paced rhythm with moderate T wave abnormality. -Head CT negative -Continue monitoring on telemetry, 2D echo completed today pending results. -BP slightly on the higher side this morning, instructions for sitting BPs, continue low-dose Midrin for now. -syncopal episode possibly due to dehydration versus vagal episode. Hyperlipidemia Dementia Anxiety -Continue home dose statin -Continue Zoloft and Xanax DVT prophylaxissubcu heparin Discussed Condition With: Patient and fish cleaner Planning: Pending echo likely discharge home with home health PT.
--- NOTE | 2018-10-14 12:15 | P.PNCA ---
Subjective Interval history: Patient denies any CP, pressure, palpitations, dizziness, edema or SOB. Patient states that she is feeling much better. Medications and Allergies Allergies Allergy/AdvReac Type Severity Reaction Status Date / Time codeine Allergy Difficulty Verified 10/13/18 05:17 Breathing Penicillins Allergy Anaphylaxis Verified 10/12/18 22:30 Sulfa (Sulfonamide Allergy Anaphylaxis Verified 10/12/18 22:30 Antibiotics) Home Medications Medication Instructions Recorded Confirmed Type Aspir-81 81 mg PO DAILY 10/12/18 10/12/18 History alprazolam 0.25 mg PO BID 10/13/18 10/13/18 History atorvastatin 20 mg PO DAILY 10/13/18 10/13/18 History docusate sodium 100 mg PO DAILY PRN 10/13/18 10/13/18 History midodrine 2.5 mg PO DAILY 10/13/18 10/13/18 History montelukast 10 mg PO QPM 10/13/18 10/13/18 History pregabalin [Lyrica] 75 mg PO BID 10/13/18 10/13/18 History sertraline 50 mg PO DAILY 10/13/18 10/13/18 History Active Medications: Active Medications Acetaminophen (Tylenol) 650 mg PO Q4H PRN PRN Reason: Temp > 100.4 Al Hydroxide/Mg Hydroxide (Milk Of Magnesia Liq) 30 ml PO Q12H PRN PRN Reason: Mild Constipation Alprazolam (Xanax) 0.25 mg PO BID [facility] Last Admin: 10/14/18 08:25 Dose: 0.25 mg Aspirin (Ecotrin) 81 mg PO DAILY [facility] Last Admin: 10/14/18 08:25 Dose: 81 mg Atorvastatin Calcium (Lipitor) 20 mg PO DAILY [facility] Last Admin: 10/14/18 08:24 Dose: 20 mg Bisacodyl (Dulcolax Supp) 10 mg RECTAL DAILY PRN PRN Reason: SEVERE CONSITIPATION Heparin Sodium (Porcine) (Heparin Inj) 5,000 units SQ Q12HR [facility] Last Admin: 10/14/18 08:24 Dose: 5,000 units Sodium Chloride (Ns Inj) 1,000 mls @ 70 mls/hr IV.CONT .[id number] [facility] Last Admin: 10/14/18 08:24 Dose: 70 mls/hr Lactulose (Lactulose Liq) 30 ml PO DAILY PRN PRN Reason: SEVERE CONSITIPATION Midodrine (Proamatine) 2.5 mg PO DAILY [facility] Last Admin: 10/14/18 08:25 Dose: 2.5 mg Ondansetron HCl (Zofran Inj) 4 mg IV.PUSH Q6H PRN PRN Reason: NAUSEA OR VOMITING Pregabalin (Lyrica) 75 mg PO BID [facility] Last Admin: 10/14/18 08:25 Dose: 75 mg Senna/Docusate Sodium (Adriana-Colace) 1 tab PO BID [facility] Last Admin: 10/14/18 08:25 Dose: 1 tab Sennosides (Senokot) 17.2 mg PO Q12H PRN PRN Reason: Moderate Constipation Sertraline HCl (Zoloft) 50 mg PO DAILY [facility] Last Admin: 10/14/18 08:25 Dose: 50 mg Sodium Chloride (Ns Flush) 2 ml IV.FLUSH PRN PRN PRN Reason: FLUSH AFTER USING IV ACCESS Sodium Chloride (Ns Flush) 2 ml IV.FLUSH BID [facility] Last Admin: 10/14/18 08:25 Dose: Not Given Sodium Chloride (Ns Flush) 2 ml IV.FLUSH PRN PRN PRN Reason: FLUSH AFTER USING IV ACCESS Physical Exam Vital signs: Vital Signs 10/13/18 14:19 10/13/18 15:30 10/13/18 17:05 Temperature 99.2 F Pulse Rate 62 66 Respiratory Rate 17 Blood Pressure 120/60 Pulse Oximetry 94 L 95 10/13/18 20:00 10/13/18 20:27 10/13/18 21:50 Temperature 97.5 F L Pulse Rate 60 64 Respiratory Rate 18 Blood Pressure 139/65 Pulse Oximetry 96 96 10/14/18 00:00 10/14/18 00:17 10/14/18 03:34 Temperature 98 F 97.3 F L Pulse Rate 60 62 60 Respiratory Rate 17 17 Blood Pressure 129/61 145/65 H Pulse Oximetry 94 L 95 10/14/18 04:00 10/14/18 08:00 10/14/18 08:02 Temperature 98.1 F Pulse Rate 61 66 61 Respiratory Rate 17 Blood Pressure 193/79 H Pulse Oximetry 94 L Intake & Output 10/13/18 10/14/18 10/14/18 18:59 06:59 18:59 Intake Total 1000 / 1000 1240 / 1240 1000 / 1000 Balance 1000 / 1000 1240 / 1240 1000 / 1000 Weight 67.6 kg Intake: IV 1000 / 1000 1000 / 1000 1000 / 1000 NS Inj 1,000 ML @ 70 mls/hr IV. 1000 / 1000 1000 / 1000 1000 / 1000 CONT .[id number] [facility] Rx#:[id number] Oral 240 / 240 Other: # Voids 4 4 Date of Last Bowel Movement 10/13/18 10/13/18 10/13/18 # Bowel Movements 3 - Constitutional no acute distress - Routine HEENT Exam Head: Present: normocephalic Eye: Present: PERRL ENT: Present: mucous membranes moist - Routine Neck Exam Present: full ROM - Routine Respiratory Exam Present: CTA bilaterally - Routine Cardiovascular Exam Present: S1, S2. Absent: murmur, gallop, rubs - Routine Abdominal Exam Present: normoactive bowel sounds - Routine Extremities Exam Present: full ROM, pulses intact, normal capillary refill. Absent: cyanosis, clubbing, edema - Routine Skin Exam Present: intact - Routine Neurological Exam Present: oriented X3 - Detailed Neurological Exam: Coma Scale Eye Opening: Spontaneous Verbal Response: Oriented Motor Response: Obey commands Arvind Coma Scale Total: 15 - Routine Psychiatric Exam Present: normal affect Results 10/14/18 04:27 10/14/18 04:27 CBC 10/12/18 10/14/18 Range/Units 23:11 04:27 WBC 11.7 H 4.4 (4.0-11.0) th/mm3 RBC 4.22 3.88 L (4.00-5.30) mil/mm3 Hgb 12.9 12.0 (11.6-15.3) gm/dL Hct 38.9 35.4 (35.0-46.0) % Plt Count 208 185 (150-450) th/mm3 Neut # (Auto) 9.2 H 2.4 (1.8-7.7) th/mm3 Lymph # (Auto) 1.3 1.4 (1.0-4.8) th/mm3 [place] # (Auto) 0.9 0.4 (0.0-0.9) th/mm3 Eos # (Auto) 0.2 0.2 (0.0-0.4) th/mm3 Baso # (Auto) 0.1 0.0 (0.0-0.2) th/mm3 Comprehensive Metabolic Panel 10/12/18 10/14/18 Range/Units 23:11 04:27 Sodium 148 H 148 H (136-145) meq/L Potassium 3.9 3.7 (3.5-5.1) meq/L Chloride 118 H 116 H (98-107) meq/L Carbon Dioxide 21.2 21.5 (21.0-32.0) meq/L BUN 30 H 18 (7-18) mg/dL Creatinine 0.98 0.69 (0.50-1.00) mg/dL Calcium 8.0 L 8.5 (8.5-10.1) mg/dL Intake and Output 10/13/18 10/14/18 10/14/18 22:59 06:59 14:59 Intake Total 456 / 456 1240 / 1240 1000 / 1000 Balance 456 / 456 1240 / 1240 1000 / 1000 Intake: IV 456 / 456 1000 / 1000 1000 / 1000 NS Inj 1,000 ML @ 70 mls/hr IV. 456 / 456 1000 / 1000 1000 / 1000 CONT .[id number] [facility] Rx#:[id number] Oral 240 / 240 Other: # Voids 4 4 Date of Last Bowel Movement 10/13/18 10/13/18 # Bowel Movements 3 Weight 67.6 kg - Imaging and Cardiology Imaging: Impressions Chest X-Ray 10/12/18 22:43 CONCLUSION: Left subclavian pacer. Clips and wires suggests CABG. Head CT 10/12/18 22:43 CONCLUSION: 1. No evidence of intracranial injury, hemorrhage, edema or mass effect. . Carotid Doppler Study 10/13/18 00:00 CONCLUSION: Mild plaque at the carotid bulb regions being greater on the right. Significant stenosis is not seen. Assessment and Plan - Assessment (1) Syncope Code(s): R55 - Syncope and collapse Status: Acute (2) Paroxysmal atrial fibrillation Code(s): I48.0 - Paroxysmal atrial fibrillation Status: Acute (3) CAD (coronary artery disease) Code(s): I25.10 - Atherosclerotic heart disease of [place] coronary artery without angina pectoris Status: Acute (4) Hyperlipidemia Code(s): E78.5 - Hyperlipidemia, unspecified Status: Acute - Plan Patient denies any more syncopal episodes. No angina or CHF. Patient continues to remain stable from a cardiac standpoint, we will continue with current cardiac treatment plan including ASA and atorvastatin. Carotid US showed minimal plaque. Tele shows SR. We will continue to monitor patient during her hospitalization and follow up in office after discharge. The patient was seen and evaluated by Dr. Arellano who participated in care, management and decision making. - Attending Attestation Patient seen and examined. I reviewed and agree with the evaluation and plan as presented. No recurrent symptoms. Tele with NSR. Anticipate discharge soon.
--- NOTE | 2018-10-14 15:47 | ECHRPT ---
Indication: Syncope CONCLUSIONS Normal left ventricular size. Wall thickness is measured at the upper limits of normal. The left ventricular systolic function is normal with an estimated ejection fraction in the range of 55-60%. A pacemaker wire is noted. The left atrial size is upper limits of normal. Mild to moderate mitral valve regurgitation. Trace aortic valve regurgitation. There is mild tricuspid valve regurgitation. The estimated pulmonary arterial pressure is 32 mmHg. BP: / HR: Rhythm: MEASUREMENTS (Male / Female) Normal Values Technical Quality:Fair 2D ECHO LV Diastolic Diameter PLAX 4.6 cm 4.2 - 5.9 / 3.9 - 5.3 cm LV Systolic Diameter PLAX 3.3 cm IVS Diastolic Thickness 1.1 cm 0.6 - 1.0 / 0.6 - 0.9 cm LVPW Diastolic Thickness 1.0 cm 0.6 - 1.0 / 0.6 - 0.9 cm LV Relative Wall Thickness 0.5 RV Internal Dim ED PLAX 2.5 cm LVOT Diameter 1.9 cm Aortic Root Diameter 2.5 cm LA Systolic Diameter LX 3.9 cm 3.0 - 4.0 / 2.7 - 3.8 cm DOPPLER AV Peak Velocity 133.0 cm/s AV Peak Gradient 7.1 mmHg LVOT Peak Velocity 99.2 cm/s LVOT Peak Gradient 3.9 mmHg AV Area Cont Eq pk 2.1 cm Mitral E Point Velocity 77.5 cm/s Mitral A Point Velocity 90.3 cm/s Mitral E to A Ratio 0.9 LV E' Lateral Velocity 8.7 cm/s Mitral E to LV E' Lateral Ratio 8.9 LV E' Septal Velocity 6.7 cm/s Mitral E to LV E' Septal Ratio 11.5 TR Peak Velocity 235.0 cm/s TR Peak Gradient 22.1 mmHg Right Atrial Pressure 10.0 mmHg Pulmonary Artery Systolic Pressu 32.1 mmHg Right Ventricular Systolic Press 32.1 mmHg PV Peak Velocity 78.7 cm/s PV Peak Gradient 2.5 mmHg FINDINGS LEFT VENTRICLE Normal left ventricular size. Wall thickness is measured at the upper limits of normal. The left ventricular systolic function is normal with an estimated ejection fraction in the range of 55-60%. RIGHT VENTRICLE A pacemaker wire is noted. LEFT ATRIUM The left atrial size is upper limits of normal. RIGHT ATRIUM The right atrial size is normal. ATRIAL SEPTUM Normal atrial septal thickness without atrial level shunting by limited color doppler interrogation. AORTA The aortic root and proximal ascending aorta are normal in size on limited imaging. MITRAL VALVE Mild mitral valve regurgitation. AORTIC VALVE Trileaflet aortic valve. Trace aortic valve regurgitation. TRICUSPID VALVE There is mild tricuspid valve regurgitation. The estimated pulmonary arterial pressure is 32 mmHg. PULMONARY VALVE No pulmonary valve regurgitation or stenosis. VESSELS The inferior vena cava is normal in size. PERICARDIUM No pericardial effusion. Rob Lopez MD, FACC, [facility] [place] (Electronically Signed) Final Date:14 October 2018 15:47
[2018-10-15] MEDS: Heparin - SQ 10,000 UNITS/ML Vial SQ SCH ×2 (08:58→20:25)
[2018-10-15] MEDS: Senna/Docusate Sodium 8.6/50 MG Tablet PO SCH ×2 (09:00→20:26)
[2018-10-15] MEDS: Sertraline 50 MG Tablet PO SCH (09:00)
[2018-10-15] MEDS: ALPRAZolam 0.25 MG Tablet PO SCH ×2 (09:00→20:26)
[2018-10-15] MEDS: Pregabalin 75 MG Capsule PO SCH ×2 (09:00→20:26)
[2018-10-15 09:07] VITALS: RESP 18
--- NOTE | 2018-10-15 09:32 | P.PN ---
Physical Exam Vital signs: Vital Signs 10/14/18 12:01 10/14/18 15:10 10/14/18 19:33 Temperature 97.2 F L 98.2 F 97.8 F Pulse Rate 61 60 65 Respiratory Rate 17 17 18 Blood Pressure 130/74 131/63 150/74 H Pulse Oximetry 96 96 94 L 10/14/18 20:00 10/14/18 23:52 10/15/18 00:00 Temperature 97.9 F Pulse Rate 61 61 63 Respiratory Rate 17 Blood Pressure 165/81 H Pulse Oximetry 94 L 10/15/18 05:54 10/15/18 07:42 Temperature 97.9 F 98.1 F Pulse Rate 68 62 Respiratory Rate 17 18 Blood Pressure 146/70 H 173/77 H Pulse Oximetry 93 L 93 L Intake & Output 10/14/18 10/15/18 10/15/18 18:59 06:59 18:59 Intake Total 2200 / 2200 1480 / 1480 1000 / 1000 Balance 2200 / 2200 1480 / 1480 1000 / 1000 Weight 66.2 kg Intake: IV 1000 / 1000 1000 / 1000 1000 / 1000 NS Inj 1,000 ML @ 70 mls/hr IV. 1000 / 1000 1000 / 1000 1000 / 1000 CONT .[id number] [facility] Rx#:[id number] Oral 1200 / 1200 480 / 480 Other: # Voids 9 15 Date of Last Bowel Movement 10/14/18 10/14/18 10/14/18 # Bowel Movements 2 1 Results - Labs CBC & Chem 7: 10/14/18 04:27 10/14/18 04:27 Assessment and Plan - Plan Syncopal episode -Patient with history of irregular heartbeat not on anticoagulation -Followed by Dr. Arellano cardiology, pacemaker in place. -Pacemaker interrogated with no events reported. -Consult placed to cardiology, appreciate assistance. -Carotid ultrasound with mild plaque at carotid bulb regions being greater on right, significant stenosis is not seen. -EKG on admission showed atrial paced rhythm with moderate T wave abnormality. -Head CT negative -Continue monitoring on telemetry, 2D echo completed today pending results. -BP slightly on the higher side this morning, instructions for sitting BPs, continue low-dose Midrin for now. -syncopal episode possibly due to dehydration versus vagal episode. Hyperlipidemia Dementia Anxiety -Continue home dose statin -Continue Zoloft and Xanax DVT prophylaxissubcu heparin Discharge Planning: Pending echo likely discharge home with home health PT.
[2018-10-15 12:28] VITALS: TEMP 98.2; O2SAT 94
--- NOTE | 2018-10-15 15:38 | P.DS ---
Date of admission: 10/13/18 01:22 Primary care physician: CRISTI Meléndez Attending physician on discharge: Rogelio Santana Anticipated date of discharge: 10/15/18 Brief History from admission: 78-year-old female with a past medical history significant for pacemaker for an irregular heartbeat, dementia, blindness and hyperlipidemia presents to the emergency department for the evaluation of a syncopal episode. The patient was discharged from rehab on 09/25/18 after a 2-week hospitalization for pneumonia. The patient has no memory of the events that occurred earlier in the evening. Per the patient's daughter, she was called by her stanley son who was taking care of the patient. The patient reported to the son that she was feeling lightheaded and went to the bathroom. While in the bathroom she lost consciousness and the son helped her to the floor. She lost bowel continence at that time. The patient denies any chest pain or shortness of breath. No palpitations. No abdominal pain. No nausea/vomiting/diarrhea. No focal neurologic deficits. DS: Medications - Discharge Medications Prescriptions: midodrine 2.5 mg PO DAILY #60 tab DS: Summary Hospital Course: 78-year-old female with a past medical history significant for pacemaker for an irregular heartbeat, dementia, blindness and hyperlipidemia who presented to the emergency department 10/13 via EMS after syncopal episode while on the toilet. Patient was admitted for workup and cardiology consulted due to recently placed pacemaker. CBC on admission with very minimal leukocytosis which resolved, BMP with mildly elevated BUN and sodium, hemodynamically stable on admission. Head CT completed in the emergency department was negative, pacemaker was interrogated with no acute events, carotid ultrasound with mild plaque at carotid bulb regions being greater on right, significant stenosis is not seen. Echocardiogram revealed EF 50-60% with mild to moderate regurgitation and valves. Patient was provided with IV hydration and her Midrin dose increased to 5 mg daily. She was cleared by cardiology for discharge. She is seen and examined this morning resting in stress. Reports that she has home health who follows her as an outpatient already. Denies any dizziness, lightheadedness, chest pain, palpitations, cough, shortness of breath , nausea, vomiting or diarrhea. Physical therapy has seen and evaluated patient and recommends home with home health physical therapy. Case management will be reaching out to patient's ongoing home health agency to reactivate/ renew referral. - Time Spent with Patient Total time spent providing and/or coordinating discharge services: Less than 30 minutes - Quality: VTE Deep Vein Thrombosis/Pulmonary Embolism Present on Admission: No Exam Vital signs: Vital Signs 10/14/18 19:33 10/14/18 20:00 10/14/18 23:52 Temperature 97.8 F 97.9 F Pulse Rate 65 61 61 Respiratory Rate 18 17 Blood Pressure 150/74 H 165/81 H Pulse Oximetry 94 L 94 L 10/15/18 00:00 10/15/18 05:54 10/15/18 07:42 Temperature 97.9 F 98.1 F Pulse Rate 63 68 62 Respiratory Rate 17 18 Blood Pressure 146/70 H 173/77 H Pulse Oximetry 93 L 93 L 10/15/18 11:24 Temperature 98.2 F Pulse Rate 61 Respiratory Rate 18 Blood Pressure 170/79 H Pulse Oximetry 94 L Intake & Output 10/14/18 10/15/18 10/15/18 18:59 06:59 18:59 Intake Total 2200 / 2200 1480 / 1480 1000 / 1000 Balance 2200 / 2200 1480 / 1480 1000 / 1000 Weight 66.2 kg Intake: IV 1000 / 1000 1000 / 1000 1000 / 1000 NS Inj 1,000 ML @ 70 mls/hr IV. 1000 / 1000 1000 / 1000 1000 / 1000 CONT .[id number] Rx#:[id number] Oral 1200 / 1200 480 / 480 Other: # Voids 9 15 2 Date of Last Bowel Movement 10/14/18 10/14/18 10/15/18 # Bowel Movements 2 1 1 Narrative: GENERAL: Well-developed, well-nourished female sitting up in bed in no acute distress. SKIN: Warm and dry. HEAD: Atraumatic. Normocephalic. EYES: Pupils equal and round. No scleral icterus. No injection or drainage. ENT: No nasal bleeding or discharge. Mucous membranes pink and moist. NECK: Trachea midline. CARDIOVASCULAR: Regular rate and rhythm. No murmurs noted. RESPIRATORY: Clear to auscultation. Breath sounds equal bilaterally. GASTROINTESTINAL: Abdomen soft, non-tender, nondistended. + Bowel sounds MUSCULOSKELETAL: Extremities without clubbing, cyanosis, or edema. No obvious deformities. NEUROLOGICAL: Awake, alert, oriented x3. No obvious cranial nerve deficits. Motor grossly within normal limits. Normal speech. PSYCHIATRIC: Appropriate mood and affect; insight and judgment normal. Results Procedures completed during hospitalization: None - Impressions ITS Impressions Chest X-Ray 10/12/18 22:43 CONCLUSION: Left subclavian pacer. Clips and wires suggests CABG. Head CT 10/12/18 22:43 CONCLUSION: 1. No evidence of intracranial injury, hemorrhage, edema or mass effect. . Carotid Doppler Study 10/13/18 00:00 CONCLUSION: Mild plaque at the carotid bulb regions being greater on the right. Significant stenosis is not seen. Discharge Plan - Discharge Disposition Patient Disposition: W/Home Health Service - Discharge Condition Condition: Stable - Discharge Order Discharge Orders: Discharge Order (Routine); Ordered 10/15/18 Ordered By: Ludwig Keita - Physicians Team Primary Care Provider: Jass Wilcox Attending Provider: Rogelio Santana Other Providers: David Arellano MD ; [employer],Insurance
[2018-10-15 16:08] VITALS: BP 136/68
[2018-10-16 01:10] VITALS: PULSE 59
== END 2018-10-15 20:54 | disposition home health service (06) ==
LOC: NEPE 22:14 → NEDA 22:14 → N06 10-13 02:50
PROVIDERS: ADMIT Internal Medicine; ATTEND Internal Medicine
CPT/HCPCS: 70450; 71010; 71045; 80048; 81001; 85025; 90760; 90761; 93005; 93306; 93880; 96360; 96361; 96372; 97162; 97167; 99285; G0378; G8987; G8988; J1644; J7030